=== PATIENT | male | born 1970 | race Caucasian/White ===

== ENCOUNTER 2017-10-26 21:59 | Emergency (ER) | payer MEDICARE, MEDICAID ==
[~2017-10-26] VITALS: Ht 175.3 cm; Wt 101.7 kg
[~2017-10-26 21:59] MED LIST: BENZ-16 PO; HCTZ25T PO; NO HOME MEDS
[2017-10-26] MEDS ORDERED: proparacaine 0.5% ophthalmic drops 15ml EACHEYE ONE (23:10)
[2017-10-26] MEDS ORDERED: TETanus/Pertussis (Acell)/Diphther VAC/PF (Tdap-Adult) 0.5ml syringe IMVAC ONE (23:55)
[2017-10-27] MEDS ORDERED: ciprofloxacin 0.3% 5ml ophthalmic solution RIGHTEYE ONE ×2 (00:20→00:30)
[2017-10-27] MEDS ORDERED: diazepam 5mg tablet PO ONE (00:20)
[2017-10-27] MEDS ORDERED: HYDROcodone/acetaminophen 10/325mg tab PO ONE (00:20)
[2017-10-27] MEDS ORDERED: HYDR-3965 PO (00:29)
[2017-10-27] MEDS ORDERED: DIAZ5TAB PO (00:29)
[2017-10-27] MEDS ORDERED: CIPR2.5D18 RIGHTEYE (00:50)
[2017-10-27] MEDS ORDERED: gentamicin 0.3% ophthalmic drops 5ML RIGHTEYE ONE (00:55)
[2017-10-27 01:11] VITALS: BP 148/94
== END 2017-10-27 01:15 | disposition home or self-care (01) ==
LOC: ER 22:00
DX: T15.01XA Foreign body in cornea, right eye, initial encounter (principal); I10 Essential (primary) hypertension; K21.9 Gastro-esophageal reflux disease without esophagitis; E11.9 Type 2 diabetes mellitus without complications; Z88.1 Allergy status to other antibiotic agents; Z79.899 Other long term (current) drug therapy; X58.XXXA Exposure to other specified factors, initial encounter; Y93.89 Activity, other specified; Y92.89 Other specified places as the place of occurrence of the external cause; Y99.8 Other external cause status
CPT/HCPCS: 65222; 90471; 90715; 99284

== ENCOUNTER 2017-12-05 01:41 | Emergency (ER) | payer MEDICARE, MEDICAID ==
[~2017-12-05] VITALS: Ht 175.3 cm; Wt 195.0 kg
[~2017-12-05 01:41] MED LIST changes: +DIAZ5TAB PO
[2017-12-05] MEDS ORDERED: proparacaine 0.5% ophthalmic drops 15ml LEFTEYE ONE (02:00)
[2017-12-05] MEDS ORDERED: benoxinate/fluorescein ophth drops 5ml bottle LEFTEYE ONE (02:00)
[2017-12-05] MEDS ORDERED: gentamicin 0.3% ophthalmic drops 5ML LEFTEYE SCH (02:20)
[2017-12-05 02:49] VITALS: BP 151/99
== END 2017-12-05 02:51 | disposition home or self-care (01) ==
LOC: ER 01:42
DX: H10.9 Unspecified conjunctivitis (principal); I10 Essential (primary) hypertension; K21.9 Gastro-esophageal reflux disease without esophagitis; E11.9 Type 2 diabetes mellitus without complications; Z88.1 Allergy status to other antibiotic agents
CPT/HCPCS: 99283

== ENCOUNTER 2017-12-13 17:06 | Emergency (ER) | payer MEDICARE, MEDICAID ==
[~2017-12-13] VITALS: Ht 175.3 cm; Wt 97.7 kg
[2017-12-13] MEDS: proparacaine 0.5% ophthalmic drops 15ml RIGHTEYE ONE (18:17)
[2017-12-13] MEDS: ciprofloxacin 0.3% 5ml ophthalmic solution RIGHTEYE SCH (19:13)
[2017-12-13 19:21] VITALS: BP 135/89
== END 2017-12-13 19:23 | disposition home or self-care (01) ==
LOC: ER 17:07
DX: T15.91XA Foreign body on external eye, part unspecified, right eye, initial encounter (principal); I10 Essential (primary) hypertension; E11.9 Type 2 diabetes mellitus without complications; K21.9 Gastro-esophageal reflux disease without esophagitis; Z88.1 Allergy status to other antibiotic agents; Z79.899 Other long term (current) drug therapy; Y92.89 Other specified places as the place of occurrence of the external cause
CPT/HCPCS: 65222; 99284

== ENCOUNTER 2018-03-22 23:45 | Emergency (ER) | payer MEDICARE, MEDICAID ==
[~2018-03-22] VITALS: Ht 175.3 cm; Wt 97.0 kg
[2018-03-23 00:01] VITALS: BP 126/97
[2018-03-23] MEDS ORDERED: IBUP-1984 PO (02:23)
[2018-03-23] MEDS ORDERED: HYDR-569 PO (02:23)
== END 2018-03-23 02:40 | disposition home or self-care (01) ==
LOC: ER 23:46
DX: S60.212A Contusion of left wrist, initial encounter (principal); I10 Essential (primary) hypertension; K21.9 Gastro-esophageal reflux disease without esophagitis; E11.9 Type 2 diabetes mellitus without complications; Z88.1 Allergy status to other antibiotic agents; Z79.899 Other long term (current) drug therapy; W22.8XXA Striking against or struck by other objects, initial encounter; Y93.89 Activity, other specified; Y92.89 Other specified places as the place of occurrence of the external cause; Y99.8 Other external cause status
CPT/HCPCS: 29125; 73110; 99284; A4565

== ENCOUNTER 2018-12-28 14:23 | Emergency (ER) | payer MEDICARE, MEDICAID ==
[~2018-12-28] VITALS: Ht 175.3 cm; Wt 95.5 kg
[~2018-12-28 14:23] MED LIST changes: +HYDR-4383 PO
[2018-12-28 14:34] VITALS: BP 136/97
[2018-12-28] MEDS ORDERED: ketorolac tromethamine 15mg/ml inj. IM ONE (15:05)
[2018-12-28] MEDS ORDERED: IBUP-1985 PO (15:35)
== END 2018-12-28 15:48 | disposition home or self-care (01) ==
LOC: ER 14:23
DX: M25.522 Pain in left elbow (principal); R20.0 Anesthesia of skin; I10 Essential (primary) hypertension; K21.9 Gastro-esophageal reflux disease without esophagitis; E11.9 Type 2 diabetes mellitus without complications; Z90.89 Acquired absence of other organs; Z88.1 Allergy status to other antibiotic agents; Z79.899 Other long term (current) drug therapy; X50.1XXA Overexertion from prolonged static or awkward postures, initial encounter; Y93.89 Activity, other specified; Y92.89 Other specified places as the place of occurrence of the external cause; Y99.9 Unspecified external cause status
CPT/HCPCS: 73080; 96372; 99283; J1885

== ENCOUNTER 2019-08-28 16:37 | Emergency (ER) | payer MEDICARE, MEDICAID ==
[~2019-08-28] VITALS: Ht 175.3 cm; Wt 97.7 kg
[~2019-08-28 16:37] MED LIST changes: +IBUP-1985 PO
[2019-08-28 16:48] VITALS: BP 118/91
[2019-08-28] MEDS ORDERED: IBUP-1984 PO (17:36)
[2019-08-28] MEDS ORDERED: CEPH250T PO (17:36)
== END 2019-08-28 17:45 | disposition home or self-care (01) ==
LOC: ER 16:37
DX: M79.644 Pain in right finger(s) (principal); L08.9 Local infection of the skin and subcutaneous tissue, unspecified; I10 Essential (primary) hypertension; K21.9 Gastro-esophageal reflux disease without esophagitis; E11.9 Type 2 diabetes mellitus without complications; Z90.89 Acquired absence of other organs; Z98.890 Other specified postprocedural states; Z88.1 Allergy status to other antibiotic agents; Z79.2 Long term (current) use of antibiotics; Z79.899 Other long term (current) drug therapy
CPT/HCPCS: 99283

== ENCOUNTER 2022-07-28 11:53 | Emergency (ER) | payer MEDICARE, MEDICAID ==
[~2022-07-28] VITALS: Ht 175.3 cm; Wt 98.0 kg
[2022-07-28 12:03] VITALS: BP 185/96
== END 2022-07-28 13:15 | disposition home or self-care (01) ==
LOC: ER 11:54
DX: M25.532 Pain in left wrist (principal); I10 Essential (primary) hypertension; K21.9 Gastro-esophageal reflux disease without esophagitis; E11.9 Type 2 diabetes mellitus without complications; Z88.1 Allergy status to other antibiotic agents; Z91.041 Radiographic dye allergy status; Z98.890 Other specified postprocedural states
CPT/HCPCS: 29125; 73110; 99283; L3908

== ENCOUNTER 2023-11-09 18:06 | Emergency (ER) | payer MEDICARE, MEDICAID ==
[~2023-11-09] VITALS: Ht 175.3 cm; Wt 95.8 kg
[2023-11-09 18:30] VITALS: BP 148/98; PULSE 100; RESP 18; TEMP 98.2; O2SAT 97
[2023-11-09] MEDS: TETanus/Pertussis (Acell)/Diphther VAC/PF (Tdap-Adult) 0.5ml syringe IMVAC ONE (19:14)
[2023-11-09] MEDS: bacitracin 15gm ointment TP ONE (19:16)
[2023-11-09] MEDS: LIDOCAINE 1%/EPI 1:100,000 inj. 10 ML multi-dose vial SQ ONE (19:16)
== END 2023-11-09 19:32 | disposition home or self-care (01) ==
LOC: ER 18:07
DX: S81.812A Laceration without foreign body, left lower leg, initial encounter (principal); I10 Essential (primary) hypertension; K21.9 Gastro-esophageal reflux disease without esophagitis; E11.9 Type 2 diabetes mellitus without complications; Z91.041 Radiographic dye allergy status; Z88.1 Allergy status to other antibiotic agents; Z79.899 Other long term (current) drug therapy; Z79.1 Long term (current) use of non-steroidal anti-inflammatories (NSAID); W45.8XXA Other foreign body or object entering through skin, initial encounter; Y93.89 Activity, other specified; Y92.89 Other specified places as the place of occurrence of the external cause; Y99.8 Other external cause status
CPT/HCPCS: 12002; 90471; 90715; 99283; A6258

== ENCOUNTER 2023-11-19 10:36 | Emergency (ER) | payer MEDICARE, MEDICAID ==
[~2023-11-19] VITALS: Ht 175.3 cm; Wt 95.1 kg
[2023-11-19 10:37] VITALS: BP 143/105; PULSE 79; RESP 16; TEMP 97.8; O2SAT 97
== END 2023-11-19 11:05 | disposition home or self-care (01) ==
LOC: ER 10:37
DX: S81.812D Laceration without foreign body, left lower leg, subsequent encounter (principal); Z48.00 Encounter for change or removal of nonsurgical wound dressing; X58.XXXD Exposure to other specified factors, subsequent encounter; I10 Essential (primary) hypertension; K21.9 Gastro-esophageal reflux disease without esophagitis; E11.9 Type 2 diabetes mellitus without complications; Z88.1 Allergy status to other antibiotic agents; Z79.899 Other long term (current) drug therapy
CPT/HCPCS: 99281

== ENCOUNTER 2024-12-17 22:20 | Emergency (ER) | payer MEDICARE, MEDICAID ==
[~2024-12-17] VITALS: Ht 175.3 cm; Wt 97.7 kg
[2024-12-17 22:28] VITALS: BP 169/96; PULSE 86; RESP 19; TEMP 98.1; O2SAT 94
== END 2024-12-18 02:10 | disposition left against medical advice (07) ==
LOC: ER 22:21
DX: R05.9 Cough, unspecified (principal); J00 Acute nasopharyngitis [common cold]; R09.81 Nasal congestion; Z88.8 Allergy status to other drugs, medicaments and biological substances; Z20.822 Contact with and (suspected) exposure to COVID-19; Z53.21 Procedure and treatment not carried out due to patient leaving prior to being seen by health care provider
CPT/HCPCS: 36415; 71045; 87502; 87503; 87811

== ENCOUNTER 2025-06-23 19:31 | Inpatient (IN) | payer MEDICARE, MEDICAID ==
[~2025-06-23] VITALS: Ht 175.3 cm; Wt 80.5 kg
[~2025-06-23 19:31] MED LIST changes: -IBUP-1985 PO; +IBUP600T52 PO
[2025-06-23 20:00] LABS: LEUKOCYTE ESTERASE ,URINE NEGATIVE (Neg); NITRITES, URINE NEGATIVE (Neg); OCCULT BLOOD,URINE NEGATIVE (Neg)
[2025-06-23 20:07] LABS: UA COLLECTION TYPE CLN CATCH MIDSTREAM
[2025-06-23 20:16] LABS: CREATININE 1.04 MG/DL (0.60-1.10); TOTAL CARBON DIOXIDE 25.3 MMOL/L (24-32); eCRCL 80 ML/MIN; eGFR 74 ML/MIN
[2025-06-23 20:19] LABS: MEAN PLATELET VOLUME 9.1 FL (7.4-10.4); RED CELL DISTRIBUTION WIDTH 15.2 % (11.5-14.5)
[2025-06-23] MEDS ORDERED: iohexol 300mg/ml 100ml inj. ONE (23:23)
[2025-06-24] VITALS (27 sets, daily range): BP systolic 102–166; BP diastolic 61–92; PULSE 66–91; RESP 12–26; TEMP 97.3–98.2; O2SAT 90–100
--- NOTE | 2025-06-24 00:07 | RADIOLOGY REPORT ---
CLINICAL HISTORY: LRQ pain with fever, nausea and vomiting TECHNIQUE: CT of the abdomen and pelvis was performed with intravenous contrast. 100 mL Omnipaque 300 injected This exam was performed according to our departmental dose optimization program. Up-to-date CT equipment and radiation dose reduction techniques are utilized as appropriate. CTDIVol: 33.71 mGy DLP: 1816.22 mGy-cm WID: COMPARISON: None FINDINGS: Lower Thorax: Normal-sized heart without pericardial effusion. There is a small hiatal hernia. Trace pericardial fluid. Mild bilateral bronchial wall thickening in the lung bases. There are a few tiny sub 5 mm nodules in the lung bases for example in the right middle lobe on series 2, image 10. Liver and Biliary system: There is nodular contour of the liver. There is mild hepatic steatosis. No discrete hepatic lesion. The major portal veins are patent. The gallbladder is normal caliber. There is no biliary ductal dilatation. Small portosystemic collateral vessels in the upper abdomen. Spleen: Mild splenomegaly. Adrenal Glands and Kidneys: Normal adrenal glands. No hydronephrosis or nephrolithiasis. Small left lower pole renal cyst. Pancreas and Retroperitoneum: Fatty infiltration and atrophy of the pancreas. There is no retroperitoneal lymphadenopathy. Aorta and Major Vessels: Aortoiliac vessels are patent and normal caliber containing mild calcified atherosclerotic plaque. Bowel, Mesentery and Peritoneal space: Normal caliber small and large bowel. There is a dilated hyperemic appendix with periappendiceal soft tissue stranding. Note is made of prior inessa fundoplication. There is no free intraperitoneal air or fluid collection. Pelvis: The prostate and seminal vesicles are grossly unremarkable. The urinary bladder is mildly distended. There is no pelvic lymphadenopathy. Abdominal wall and Osseous Structures: Tiny sclerotic foci in the proximal femurs and pelvis, likely bone islands. Multilevel lower thoracic and lumbar spondylosis. There is grade 1 anterolisthesis at L5-S1 with bilateral L5 spondylolysis. No destructive osseous lesion. IMPRESSION: 1. Acute appendicitis. No free air or abscess. 2. Nodular contour of the liver should be fibrosis or cirrhosis. Correlate with liver function test. 3. Small portosystemic collateral vessels and splenomegaly which may be stigmata of portal hypertension . 4. Prior Inessa fundoplication and small hiatal hernia.
--- NOTE | 2025-06-24 01:12 | Physician Documentation ---
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 Patient reports that he feels like he has had a slight fever he has been nauseated and had 1 episode of vomiting that time. Reports significant abdominal pain. Patient denies anything that makes it better or makes it worse reports that the pain is persistent. Medication Reconciliation Allergies: Coded Allergies: Erythromycin Lactobionate (Verified Allergy, Unknown, 06/23/25) amoxicillin (Verified Allergy, Unknown, 06/23/25) Scheduled Hydrochlorothiazide* (Hctz*), 25 MG PO DAILY, (Reported) Ibuprofen (Ibuprofen), 1 TAB PO Q8H Scheduled PRN Benzonatate* (Tessalon Perles*), 100 MG PO Q8H PRN for cough Diazepam (Valium), 1 TABLET PO TID PRN for severe pain Hydrocodone/Acetaminophen ([place] 5-325 Tablet), 1-2 TAB PO Q4HPRN PRN for pain Miscellaneous Medications Home Med List (No Home Medications), (Reported) Past Medical History Past Medical History: Hypertension, GERD, Diabetes Past Surgical History: tonsillectomy, other Alcohol Use: None Drug Use: none Lives with: Family Lives In: Home Occupation: disabled Review of Systems ROS As stated above in the HPI, otherwise all systems are reviewed and negative. Physical Exam Vital Signs: Temperature: 97.6, Source: Temporal, Heart Rate: 89, Respiratory Rate: 15, BP: 124/97, Pulse Oximetry: 99, Weight: 80.500 Physical Exam VITALS: Reviewed and as above. GENERAL: Alert, no apparent distress. GI: Soft, markedly tender with palpation, bowels sounds present, guarding and rebound tenderness. BACK: No CVA tenderness, or swelling MUSCULOSKELETAL No deformities, no edema SKIN: Warm and dry, no rash NEURO: Oriented x4, No motor or sensory deficit PSYCH: Normal mood and affect, no agitation Progress Results/Orders Results/Orders Orders - JOAQUIN,CHRISTIAN A CERTIFIED ANESTHESIOLOGIST ASSISTANT Ct Abdomen Pelvis (06/23/25 23:16) Page Hospitalist (06/24/25 00:33) Completed Orders - JOAQUINCHRISTIAN A CERTIFIED ANESTHESIOLOGIST ASSISTANT Ct Abdomen Pelvis (06/23/25 23:16) Iohexol 300mg/Ml 100ml Inj. (Omnipaque-3 (06/23/25 23:23) Vital Signs 06/23/25 06/23/25 19:37 22:45 Temp 97.6 Pulse 93 89 Resp 15 15 B/P (MAP) 146/86 124/97 (106) Pulse Ox 98 99 Laboratory Tests Test 06/23/25 19:46 06/23/25 19:51 Urine Specimen Description Cln catch midstream Urine Color Yellow Urine Clarity Clear Urine pH 6.0 Urine Specific [place] >=1.030 Urine Protein Negative Urine Glucose (UA) 100 H Urine Ketones Trace H Urine Occult Blood Negative Urine Nitrite Negative Urine Bilirubin Negative Urine Urobilinogen 0.2 Urine Leukocyte Esterase Negative Urine Culture Indicated Not ind Volume Urine Centrifuged 10 ml Urine Comment White Blood Count 13.8 H Red Blood Count 5.62 Hemoglobin 15.2 Hematocrit 45.8 Mean Corpuscular Volume 81.4 Mean Corpuscular Hemoglobin 27.0 Mean Corpuscular Hemoglobin Concent 33.1 Red Cell Distribution Width 15.2 H Platelet Count 228 Mean Platelet Volume 9.1 Neutrophils (%) (Auto) 82.4 H Lymphocytes (%) (Auto) 8.7 L Monocytes (%) (Auto) 4.6 Eosinophils (%) (Auto) 3.7 Basophils (%) (Auto) 0.6 Neutrophils # (Auto) 11.3 H Lymphocytes # (Auto) 1.2 Monocytes # (Auto) 0.6 Eosinophils # (Auto) 0.5 Basophils # (Auto) 0.1 CBC Comment Sodium Level 139 Potassium Level 4.0 Chloride Level 104 Carbon Dioxide Level 25.3 Anion Gap 10 Blood Urea Nitrogen 12 Creatinine 1.04 Estimated GFR/1.73 m2 74 BUN/Creatinine Ratio 11.5 Glucose Level 154 H Calcium Level 9.2 Total Bilirubin 0.9 Aspartate Amino Transf (AST/SGOT) 26 Alanine Aminotransferase (ALT/SGPT) 25 Alkaline Phosphatase 98 Total Protein 7.6 Albumin 4.0 Globulin 3.6 Albumin/Globulin Ratio 1.1 Lipase 18 Chemistry Comments Medical Decision Making Findings This is a 54-year-old gentleman with RLQ pain, most concerning for appendicitis. Abdominal exam concerning for peritoneal signs acute abdomen at this time. High suspicion for appendicitis. Patient with appendicitis this confirmed on CT scan, the hospitalist was consulted and patient admitted. Given work up, low suspicion for acute hepatobiliary disease (including acute cholecystitis or cholangitis), acute infectious processes (pneumonia, hepatitis, pyelonephritis), vascular catastrophe, bowel obstruction, or viscus perforation. Presentation not consistent with other acute, emergent causes of abdominal pain at this time. IV established fluids started pain management provided Zofran given. Handoff for this patient has been provided to my attending Dr. Johansen. Differential Dx:Considerations: Include: AAA, Angina/PA, Aortic dissection, Appendicitis, Bowel obstruction, Cholangitis, Cholelithasis, Constipation, Diverticular disease, Esophageal rupture, Esophagitis, Gastritis/PUD, Gastroenteritis, GI hemorrhage, Hernia, Hepatitis, Inflammatory BD, Ischemic bowel, Pancreatitis, Porphyria, Testicular torsion, Trauma, intraabdominal, Urinary obstruction, Urinary tract infection, Urolithiasis, Other Departure Disposition: ADMITTED INPATIENT Impression: Primary Impression: Abdominal pain Additional Impression: Acute appendicitis Condition: Stable Discharge Instructions: Abdominal Pain (Nonspecific) Additional Instructions: This is a 54-year-old gentleman with RLQ pain, most concerning for appendicitis. Abdominal exam concerning for peritoneal signs acute abdomen at this time. High suspicion for appendicitis. Patient with appendicitis this confirmed on CT scan, the hospitalist was consulted and patient admitted. Given work up, low suspicion for acute hepatobiliary disease (including acute cholecystitis or cholangitis), acute infectious processes (pneumonia, hepatitis, pyelonephritis), vascular catastrophe, bowel obstruction, or viscus perforation. Presentation not consistent with other acute, emergent causes of abdominal pain at this time. IV established fluids started pain management provided Zofran given. Handoff for this patient has been provided to my attending Dr. Johansen. Referrals: NO PRIMARY CARE PROVIDER (PCP) Signature Scribe Signature: A Attestation: Scribed for Christian Nuñez by AUGUSTIN Jama . 06/24/25 01:13 CHRISTIAN NUÑEZ Jun 24, 2025 01:12
[2025-06-24] MEDS ORDERED: magnesium sulf-water 4G/100mL 100 ML IV PRN (01:35)
[2025-06-24] MEDS ORDERED: potassium Cl 40MEQ/1/2NS 520ml 520 ML IV PRN (01:35)
[2025-06-24] MEDS ORDERED: magnesium sulf-water 2g/50mL 50 ML IV PRN (01:35)
[2025-06-24] MEDS ORDERED: magnesium Cl slow-release 64mg tablet PO PRN (01:35)
[2025-06-24] MEDS ORDERED: magnesium hydroxide 30ml (MOM) UD suspension PO PRN (01:35)
[2025-06-24] MEDS ORDERED: mag hydrox/Alum hydrox/simeth 30ml oral suspension PO PRN (01:35)
[2025-06-24] MEDS ORDERED: potassium Cl 20 mEq SR tablet PO PRN ×2 (01:35)
[2025-06-24] MEDS ORDERED: ondansetron/PF 4mg/2ml inj IV PRN ×4 (01:35→14:05)
--- NOTE | 2025-06-24 01:54 | HISTORY AND PHYSICAL-Residence ---
History & Physical Providers to CC Resident Creating Document: STEVEAPRYLKURT ORTIZ, RES CC: ELISA PHILLIPS MD ~ History of Present Illness Primary Medical Doctor: melvin riddle Reason for Admit\Complaint: Abdominal pain History of Present Illness A 54-year-old male with PMH of hiatal hernia s/p repair, mellitus esophagus, DM type 2 (insulin dependent) presented to the ED in view of acute onset of right lower quadrant abdominal pain that started this afternoon. Patient states that he started to have right lower quadrant abdominal pain sharp in character with a severity of 7/10 radiating in the belly button. Patient feels better when leaning forward and moving around worsened with the pain. Patient had associated nausea. Patient denies fever with chills, vomitings. Patient underwent colonoscopy one year ago with Dr. Méndez which was normal. Patient underwent multiple EGDs in view of paroxysmal vagus and hiatal hernia. Allergies: Coded Allergies: Erythromycin Lactobionate (Verified Allergy, Unknown, 06/23/25) amoxicillin (Verified Allergy, Unknown, 06/23/25) Home Medications Home Medications Active Ibuprofen 600 Mg Tablet 1 Tab PO Q8H 10 Days [place] 5-325 Tablet (Hydrocodone/Acetaminophen) 1 Each Tablet 1-2 Tab PO Q4HPRN PRN Valium (Diazepam) 5 Mg Tablet 1 Tablet PO TID PRN Tessalon Perles* (Benzonatate) 100 Mg Capsule 100 Mg PO Q8H PRN Reported Hctz* (Hydrochlorothiazide) 25 Mg Tablet 25 Mg PO DAILY No Home Medications (Home Med List) Each Past Medical History Past Medical History Car's esophagus Hiatal hernia Diabetes mellitus type 2, insulin dependent GERD Sleep apnea, noncompliant with CPAP mask Past Surgical History Surgical History Comment Hiatal hernia repair Tonsillectomy Past Social History Social History Comment Lives at home with family Quit alcohol in 2016 Exposed to secondhand smoke Denies active smoking, marijuana, illicit drugs. Primary care Dr. Stoddard GI: Dr. Méndez Smoking: Non-Smoker Alcohol Use: None Drug Use: None Lives with: Family Lives In: Home Occupation: disabled ROS ROS Constitutional: No fever, chills, dizziness, weight gain or loss Eyes: No pain, erythema, discharge, blurring of vision ENT: No sore throat, epistaxis, tinnitus Cardiovascular: No Shortness of breath. Chest pressure, chest discomfort, palpitations, syncope, lower extremity edema, paroxysmal nocturnal dyspnea Respiratory: No Shortness of breath and cough present, No hemoptysis Gastrointestinal: Decreased appetite, abdominal pain, nausea. No vomiting, diarrhea, constipation, hematemesis, bloating, melena or fresh blood Musculoskeletal: No pedal edema. Integumentary: No change in skin, hair, nails. No swelling, bruising, abrasions Neurologic: No headache, neck pain, numbness or tingling of the extremities, weakness Psychiatric: No delusions, depression, loss of interest in normal activity or change in sleep pattern, hallucinations, suicidal ideations Endocrine: No fatigue, weakness, polydipsia, polyuria, change in appetite, heat or cold intolerance, sweating, dry skin Exam Vitals: Vital Signs Date Time Temp Pulse Resp B/P (MAP) Pulse Ox O2 Delivery O2 Flow Rate FiO2 06/23/25 22:45 89 15 124/97 (106) 99 06/23/25 19:37 97.6 General: General: Moderately built middle-aged man, Alert, awake, oriented, in acute distress HEENT: PERRLA, no icterus, pallor, lymphadenopathy, carotid bruit Respiratory system: Bilateral vesicular breath sounds heard, no adventitious breath sounds CVS: S1-S2 heard, no murmurs/rubs/gallop GI: Tenderness in the right lower quadrant and umbilicus, Soft, no organomegaly, no guarding/rigidity, against bowel sounds present Neuro: No focal neurological deficits present Extremities: No edema cyanosis clubbing/deformities Skin: Warm and dry, multiple excoriation altamirano with scabs and papules present on the lower extremity. Diagnostic Data Last Recorded Lab Results: 06/23/25195006/24/25 0202 Advance Care Planning Advanced Care plannin - 30 Minutes (I spent 20 minutes discussing various resuscitative measures and the patient decided to be full code) Additional Plan Assessment: A 54-year-old male with PMH of Car's esophagus, hiatal hernia presented to the ED in view of acute onset of right lower quadrant abdominal pain. Patient is admitted for the evaluation management of acute appendicitis, probably uncomplicated. Plan: Acute appendicitis, probably uncomplicated Mild leukocytosis with left shift CT abdomen: Acute appendicitis. Prednisolone fundoplication and small hiatal hernia. Probable portal hypertension IV fluids at 100 cc/hour Pain meds p.r.n., IV Zosyn q.6h p.r.n. for nausea and vomitings Consult with Dr. Alcantar in a.. NPO Diabetes mellitus type 2 Insulin-dependent Follow up with A1c Lantus 15 units, low-dose sliding scale insulin Continue to monitor blood sugars Obstructive sleep apnea Noncompliant with CPAP mask Outpatient follow up CPAP daily at night Hiatal hernia s/p Alton fundoplication History of GERD Outpatient follow up Code status: Full code Diet: NPO DVT prophylaxis: SCD Disposition: Admit to surgical, surgery consult in [facility] Jessica Hays MD Internal Medicine, PGY 2 Date of Service: Jun 24, 2025 Billing Provider: ELISA PHILLIPS MD Addendum acute appendicitis - zosyn IV - surgical consult stat - NPO IM 3 KURT HAYS, RES Jun 24, 2025 01:54 ELISA PHILLIPS MD Jun 24, 2025 04:13
[2025-06-24] MEDS ORDERED: dextrose 50%-water 50ml dispensing syringe IV PRN ×2 (02:00)
[2025-06-24] MEDS ORDERED: DEXTROSE 15 GM of carb/4 tabs (each vial/BOTTLE has 4 tablets) PO PRN ×2 (02:00)
[2025-06-24] MEDS ORDERED: glucagon, human recombinant 1mg kit SUBCUT PRN (02:00)
[2025-06-24] MEDS: HYDROcodone/acetaminophen 5mg/325mg tablet PO PRN (02:15)
[2025-06-24] MEDS ORDERED: piperacillin/tazo 3.375gm/50ml 50 ML IV SCH (02:30)
[2025-06-24] MEDS: PERFLUTREN PROTEIN-A MICROSPHR (Optison) 0.22 MG/ML 3ML VIAL IV ONE (04:28)
[2025-06-24] MEDS: normal saline 1000ml 1,000 ML IV SCH (04:44)
[2025-06-24] MEDS: metroNIDAZOLE-Flagyl 500mg/NS 100 ML IV SCH (04:44)
[2025-06-24] MEDS: INSULIN LISPRO 100 UNIT/ML INSULN.PEN MULTI-DOSE SQ SCH (07:00)
[2025-06-24] MEDS: docusate sod 100mg capsule PO SCH (07:46)
[2025-06-24] MEDS: CIPROFLOXACIN 400MG/200ML premix IV SCH (07:51)
[2025-06-24] MEDS: K and/or MAG REPLACEMENT MC SCH (08:00)
--- NOTE | 2025-06-24 09:19 | RADIOLOGY REPORT ---
EXAM: DI CHEST,SINGLE VIEW Indication: pain Technique: Single frontal view of the chest was obtained Comparison: DI CHEST,SINGLE VIEW on DOS: 12/17/24 FINDINGS: Lines and Tubes: None Lungs: No focal consolidation. Pleura: No effusion. No pneumothorax. Cardiomediastinal contours: Unremarkable Bones: No acute osseous abnormality. IMPRESSION: No acute cardiopulmonary disease.
--- NOTE | 2025-06-24 10:15 | ELECTROCARDIOGRAPH REPORT ---
[facility] Test Date: 2025-06-24 Test Time: 10:12:25 Pat Name: ISHAN BLUNT Department: 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 YOLANDA Pratt Measurements Intervals [place] Rate: 63 P: 24 UT: 152 QRS: 13 QRSD: 160 T: -1 QT: 431 QTc: 442 Interpretive Statements Sinus rhythm Right bundle branch block Electronically Signed On 06-24-2025 17:11:[address] YOLANDA Pratt Please click the below link to view image of tracing.
[2025-06-24] MEDS ORDERED: labetalol 20mg/4ml (5mg/ml) syringe IV PRN ×2 (10:50→14:05)
[2025-06-24] MEDS ORDERED: hydrALAZINE 20mg/ml inj. IV PRN (10:50)
[2025-06-24] MEDS ORDERED: morphine 4 MG/ML inj SYRINge IV PRN ×2 (10:50→14:05)
[2025-06-24] MEDS: ringers solution, lacted 1,000 ML IV SCH ×2 (10:50→14:05)
[2025-06-24] MEDS ORDERED: fentaNYL/PF 50MCG/1 ML 2ML syringe IV PRN ×4 (10:50→14:05)
--- NOTE | 2025-06-24 11:04 | PROGRESS NOTE ---
Progress Note ID Providers to CC ~ Progress Note Progress Note: pt seen and examined-findings consistent with appendicitis-pt needs glo padron- possible open-discussed procedure including risks/benefits/alternatives QUEENIE DELUNA MD Jun 24, 2025 11:04
[2025-06-24] MEDS ORDERED: HYDROmorphone/PF 0.2 MG/ML SYRINGE IV PRN ×2 (14:05)
[2025-06-24] MEDS ORDERED: enalaprilat 1.25mg/ml 2ml vial IV PRN (14:05)
[2025-06-24] MEDS ORDERED: fentaNYL /PF 50mcg/ml 5ml ampule ONE (14:16)
[2025-06-24] MEDS ORDERED: midazolam 1 mg/ML 2ml injection ONE (14:16)
[2025-06-24] MEDS ORDERED: BUPIVAcaine 2.5mg/ml inj 50ml vial (contains preservative) ONE (14:17)
[2025-06-24] MEDS ORDERED: LIDOcaine 2% (20mg/ml) 5ml vial ONE (15:36)
[2025-06-24] MEDS ORDERED: propofol inj 20 ML IV ONE (15:36)
[2025-06-24] MEDS ORDERED: rocuronium 10mg/ml inj IV ONE (15:37)
[2025-06-24] MEDS ORDERED: ondansetron/PF 4mg/2ml inj ONE (15:37)
[2025-06-24] MEDS ORDERED: dexamethasone sod phosphate 4mg/ml inj. ONE (15:37)
[2025-06-24] MEDS ORDERED: acetaminophen 1,000mg/100ml IV 100 ML IV ONE (15:37)
[2025-06-24] MEDS ORDERED: vancomycin 1,000mg inj ONE (15:40)
[2025-06-24] MEDS ORDERED: glycopyrrolate 0.2mg/ml inj ONE (16:31)
--- NOTE | 2025-06-24 16:32 | OPERATIVE REPORT ---
Operative Report Providers to CC ~ Date of Procedure: Jun 24, 2025 Pre-Operative Diagnosis: APPENDICITIS Post-Operative Diagnosis SAME as PRE-Op Procedure Performed glo padron Surgeon: lakeisha newby Anesthesiologist: Deepak Contreras Type of Anesthesia: General Findings: appendicitis Estimated Blood Loss: min Specimen Removed: QUEENIE Hitchcock MD Jun 24, 2025 16:32
[2025-06-24] MEDS ORDERED: HYDROcodone/acetaminophen 10/325mg tab PO PRN (16:35)
--- NOTE | 2025-06-24 17:25 | PROGRESS NOTE- Residence ---
Progress Note - Resident Providers to CC Resident Creating Document: MAGDIEL LIZAMA RES ~ Central Line/PICC still needed: N\A Antibiotic Timeout Antibiotic Ordered?: Yes Subjective Patient examined bedside after surgery-robot assisted laparoscopic appendectomy. Drowsy most likely from the anesthesia. Not complaining of pain right now. Incision site clean and healthy. Objective Vital Signs Date Time Temp Pulse Resp B/P (MAP) Pulse Ox O2 Delivery O2 Flow Rate FiO2 06/24/25 17:05 66 12 140/74 (96) 100 Mask 6.0 06/24/25 16:45 97.9 06/24/25 09:15 21 Result Diagram: 06/23/25195006/24/25 0202 General: Moderately built middle-aged man, Alert, awake, oriented, in acute distress HEENT: PERRLA, no icterus, pallor, lymphadenopathy, carotid bruit Respiratory system: Bilateral vesicular breath sounds heard, no adventitious breath sounds CVS: S1-S2 heard, no murmurs/rubs/gallop GI: Incision sites covered with bandage, clean. Abdomen tender in all quadrants. No bloating/rigidity. Neuro: No focal neurological deficits present Extremities: No edema cyanosis clubbing/deformities Skin: Warm and dry, multiple excoriation altamirano with scabs and papules present on the lower extremity. Coagulation Studies Laboratory Tests Test 06/24/25 09:22 Activated Partial Thromboplast Time 32 SECONDS (22-32) Counseling Services Smoking & Tobacco Cessation: N/A Advance Care Planning Advanced Care plannin - 30 Minutes (Full code) Assessment Assessment A 54-year-old male with PMH of Car's esophagus, hiatal hernia presented to the ED in view of acute onset of right lower quadrant abdominal pain diagnosed with appendicitis and underwent robot assisted laparoscopic appendectomy. Plan Plan Acute appendicitis, probably uncomplicated Modified Chu score- 8 Right iliac fossa pain, anorexia, nausea, tenderness in right iliac fossa, leukocytosis with left shift CT abdomen: IMPRESSION: 1. Acute appendicitis. No free air or abscess. 2. Nodular contour of the liver should be fibrosis or cirrhosis. Correlate with liver function test. 3. Small portosystemic collateral vessels and splenomegaly which may be stigmata of portal hypertension . 4. Prior Alton fundoplication and small hiatal hernia. Plan: IV fluids at 100 cc/hour Continue antibiotics ciprofloxacin 400 mg q.12h IV, metronidazole 500 mg q.12h IV Pain controlled with morphine/Dilaudid/[place] p.r.n. Zofran 4 mg IV p.r.n. for nausea/vomiting Status post robot assisted laparoscopic appendectomy by Dr. Alcantar Start liquid diet and advance as tolerated Diabetes mellitus type 2 Insulin-dependent Hemoglobin A1c 8.8 Lantus 15 units, low-dose sliding scale insulin Continue to monitor blood sugars Obstructive sleep apnea Noncompliant with CPAP mask Outpatient follow up CPAP daily at night Hiatal hernia s/p Alton fundoplication History of GERD Outpatient follow up Code status: Full code DVT prophylaxis: SCDs Analgesia/sedation: Morphine/[place]/Dilaudid p.r.n. Line/tube: PIV GI prophylaxis: None Nutrition: 75 g carb controlled PT: Ordered. Prognosis: Guarded Disposition: Monitor in surgery Magdiel Lizama MD PGY1, Internal Medicine [facility] Date of Service: Jun 24, 2025 Billing Provider: ANITA LI MD,MAGDIEL, RES Jun 24, 2025 17:25
--- NOTE | 2025-06-24 18:35 | CARDIOLOGY REPORT ---
APPROVED REPORT EXAM: Comprehensive 2D, Doppler, and color-flow Echocardiogram. Patient Location: 347 B Blood Pressure: 166/88 mmHg Heart Rate: 66 bpm Rhythm: SINUS Indications CONGESTIVE HEART FAILURE PRE-OP [facility] Industrial Relations Commissioner: none Previous echo: none 2D Dimensions RVDd 4.3 cm LA Diam 4.8 cm IVSd 1.0 (0.7-1.1cm) LVDd 4.8 cm PWd 0.9 (0.7-1.1cm) IVSs 1.5 (0.8-1.2cm) LVDs 3.1 (2.5-4.0cm) PWs 1.3 (0.8-1.2cm) LVOT Diameter 2.32 (1.8-2.4cm) LVEF(%) 65.5 (>50%) Ao Asc Diam. 3.84 cm IVC 10.03 mm FS (%) 36.0 % SV 69.9 ml CO 4.7 L/min M-Mode Dimensions Left Atrium(MM) 3.71 (2.5-4.0cm) Aortic Root 3.42 (2.2-3.7cm) Aortic Cusp Exc 2.55 (1.5-2.0cm) MV EPSS 0.5 (<0.5cm) Biplane 2D LA Volumes LA ESV Index 16.91 mL/m2 Aortic Valve AoV Peak Jaylen. 149.0 cm/s AoV VTI 27.6 cm AO Peak GR. 8.9 mmHg AO Mean GR. 4 mmHg LVOT VTI 22.28 cm LVOT Peak Jaylen. 107.4 cm/s RADHA(VTI)/BSA 3.40 cm2/m2 RADHA (VTI) 3.40 cm2 Mitral Valve MV E Velocity 82.9 cm/s MV Peak Gr. 6 mmHg MV DECEL TIME 236 ms MV A Velocity 106.1 cm/s MV PHT 60 ms E/A Ratio 0.8 MVA (PHT) 3.67 cm2 MV VMax 119.8 cm/s TDI Medial E' P. V 12.64 cm/s E/Medial E' 6.6 Pulmonary Vein S1 Velocity 47.4 cm/s D2 Velocity 61.9 cm/s PVa Velocity 33.4 cm/s PVa Duration 88 msec LEFT VENTRICLE Normal LV size and wall thickness. Overall systolic function is normal. LVEF is 60-65%. RIGHT VENTRICLE RV is moderately dilated with normal systolic function. ATRIA LA size is normal. Mobile interatrial septum - no flow detected. AORTIC VALVE Trileaflet AV appears mildly sclerotic without stenosis or insufficiency. MITRAL VALVE Mild MV annular calcification without stenosis. Trace regurgitation. TRICUSPID VALVE TV appears structurally normal with trace regurgitation. PULMONIC VALVE Normal PV without stenosis or insufficiency. GREAT VESSELS Aortic root is normal in size. Ascending aorta is dilated. The IVC is normal in size and collapses greater than 50% with inspiration. PERICARDIUM Normal pericardium. No effusion. Other Information Study Quality: Adequate Conclusion Normal LV size and wall thickness. Overall systolic function is normal. LVEF is 60-65%. RV is moderately dilated with normal systolic function. LA size is normal. Mobile interatrial septum - no flow detected. Trileaflet AV appears mildly sclerotic without stenosis or insufficiency. Mild MV annular calcification without stenosis. Trace regurgitation. TV appears structurally normal with trace regurgitation. Ascending aorta is dilated. Normal pericardium. No effusion.
[2025-06-24] MEDS: HYDROmorphone inj. 0.5 MG/0.5 ML DISP.SYRIN IV PRN (19:17)
[2025-06-24] MEDS: insulin glargine (Lantus) pen - multi-dose SQ SCH (21:35)
--- NOTE | 2025-06-25 00:51 | OPERATIVE REPORT ---
DATE OF SURGERY: 06/24/2025 DICTATING PHYSICIAN: Joseph Alcantar MD PREOPERATIVE DIAGNOSIS: Appendicitis. POSTOPERATIVE DIAGNOSIS: Appendicitis. PROCEDURE PERFORMED: Robotic appendectomy. SURGEON: Joseph Alcantar MD REGISTERED DIETETIC TECHNICIAN: None. ANESTHESIA: General/Dr. Contreras. DRAINS: None. INDICATIONS FOR OPERATION: A 54-year-old male with abdominal pain, found to have appendicitis, taken to the surgery for robotic appendectomy. INTRAOPERATIVE FINDINGS: Acute appendicitis. DESCRIPTION OF PROCEDURE: The patient was placed supine on the operating table. After induction of general anesthesia and placement of endotracheal tube, the abdomen was prepped and draped. A subumbilical incision was then made and a 12 mm port placed using open technique and pneumoperitoneum was begun by insufflation of CO2. Additional ports were then placed in the left lower quadrant and one in the right upper abdomen. Robot was then brought to the field. Camera port docked. Camera placed, camera targeted. Additional ports were then docked and instruments placed. Abdomen was then explored. The patient was found to have acute appendicitis. Appendix had been mobilized. Appendiceal-cecal junction identified, isolated, appendicitis mesentery. When hemostasis was found to be adequate, robotic instruments were removed from the field. The appendix was then placed in the Endobag using a laparoscope. Abdomen was copiously irrigated with large of antibiotic-containing solution. Ports were then removed under laparoscopic vision with no evidence of active bleeding. Final ports and camera were then withdrawn. Pneumoperitoneum was evacuated, wounds were closed in layers. Skin was closed with clips. Dressings applied. The patient was transferred to recovery in stable condition after reversing from general anesthesia. Joseph Alcantar MD TID: [id number] RECEIPT: [id number] KB/KIR
[2025-06-25 02:00] VITALS: BP 116/71; PULSE 80; RESP 16; TEMP 97.6; O2SAT 98
[2025-06-25 04:20] VITALS: O2SAT 97
[2025-06-25 05:14] LABS: MEAN PLATELET VOLUME 9.4 FL (7.4-10.4); RED CELL DISTRIBUTION WIDTH 15.2 % (11.5-14.5)
[2025-06-25 05:36] LABS: CHOL/HDL RATIO 2.8 (0.00-4.99); CREATININE 1.03 MG/DL (0.60-1.10); LDL CHOLESTEROL 76 MG/DL (50-100); TOTAL CARBON DIOXIDE 22.3 MMOL/L (24-32); eCRCL 81 ML/MIN; eGFR 75 ML/MIN
[2025-06-25 06:44] VITALS: BP 104/62; PULSE 71; RESP 15; TEMP 97.7; O2SAT 96
[2025-06-25 07:13] VITALS: RESP 15; O2SAT 96
--- NOTE | 2025-06-25 09:21 | CONSULTATION ---
DATE OF CONSULTATION: 06/24/2025 DICTATING PHYSICIAN: Joseph Alcantar MD REASON FOR CONSULTATION: Right lower quadrant abdominal pain. HISTORY OF PRESENT ILLNESS: The patient is a 54-year-old male with history of hiatal hernia repair, diabetes, Car's, with complaints of right lower quadrant pain. CAT scan revealed evidence of acute appendicitis. right lower quadrant pain over the course of the past 24 hours. No significant vomiting. PAST MEDICAL HISTORY: Car's, hiatal hernia, diabetes, GERD, and sleep apnea. PAST SURGICAL HISTORY: Hiatal hernia repair, tonsillectomy. HOME MEDICATIONS: Include Motrin, [place], Valium, eye drops, hydrochlorothiazide. ALLERGIES: ERYTHROMYCIN, AMOXICILLIN. SOCIAL HISTORY: No history of alcohol use. REVIEW OF SYSTEMS: . PHYSICAL EXAMINATION: GENERAL: Well nourished male, in no distress. VITAL SIGNS: Unremarkable. HEART: Regular rate and rhythm. LUNGS: Clear to auscultation. ABDOMEN: Right lower quadrant tenderness. EXTREMITIES: Unremarkable. NEUROLOGIC: Nonfocal. LABORATORY DATA: WBC 13, hematocrit of 45, platelet count 228. Chemistries unremarkable. IMAGING STUDIES: CAT scan reveals evidence of acute appendicitis. IMPRESSION: 1. Acute appendicitis. 2. History of hiatal hernia. 3. History of diabetes. 4. History of Car's. RECOMMENDATIONS: 1. Admit. 2. IV antibiotics. 3. Robotic appendectomy, possible open. Joseph Alcantar MD TID: [id number] RECEIPT: [id number] CRISTOBAL/KIR
[2025-06-25 10:24] VITALS: BP 118/71; PULSE 78; RESP 16; TEMP 97; O2SAT 95
[2025-06-25] MEDS ORDERED: HYDR-3965 PO (11:36)
--- NOTE | 2025-06-25 15:06 | PROGRESS NOTE ---
Progress Note ID Providers to CC ~ Progress Note Progress Note: doing well/ok to QUEENIE Correa MD Jun 25, 2025 15:06
[2025-06-25] MEDS ORDERED: BD (16:00)
[2025-06-25] MEDS ORDERED: PIOG45TA65 PO (16:00)
[2025-06-25] MEDS ORDERED: LANTUS SQ (16:00)
--- NOTE | 2025-06-25 16:03 | DISCHARGE SUMMARY-Residence ---
Discharge Summary Providers to CC Resident Creating Document: MAGDIEL LIZAMA, RES ~ Discharge Summary Admission Diagnosis: APPENDICITIS Hospital Course DATE OF ADMISSION: 06/24/2025 DATE OF DISCHARGE: 06/25/2025 Discharge Diagnosis\Comment: Appendicitis status post robot assisted lap appendicectomy on 06/25/2025 Past medical history of hiatal hernia status post surgery, Type 2 diabetes mellitus insulin dependent Operations\Procedures: Robot assisted laparoscopic appendectomy on 06/25/[address] Alcantar Consultants: Dr. Alcantar, surgeon Complications: None Condition on DC: Stable New Medications: Hydrocodone Bit/Acetaminophen 5/325 MG ([place] 5/325 MG) 5 Mg/325 Mg Tablet 1 TAB PO Q6H PRN for pain, #14 TAB Continued Medications: [Bd] () [Bd] () Insulin Glargine,Hum.rec.anlog* (Lantus*) 100 Unit/1 Ml Vial 40 UNITS SQ BID Pioglitazone Hcl (Pioglitazone Hcl) 45 Mg Tablet 1 TAB PO DAILY Discharge Summary: History of present illness: A 54-year-old male with PMH of hiatal hernia s/p repair, DM type 2 (insulin dependent) presented to the ED in view of acute onset of right lower quadrant abdominal pain , sharp in character with a severity of 7/10 radiating in the belly button. Relieved when leaning forward, associated with nausea. Patient denies fever with chills, vomitings. He underwent colonoscopy one year ago with Dr. Méndez which was normal. He also underwent multiple EGDs in view of paroxysmal vagus and hiatal hernia. Hospital course: From the clinical presentation and imaging he was diagnosed with acute appendicitis. He was started on antibiotic ciprofloxacin 400 mg IV b.i.d. and metronidazole 500 mg IV b.i.d. he underwent robot assisted laparoscopic appendectomy on 06/25/[address] Alcantar without any complication. He wishes to procedure well. No postoperative complications. He is tolerating clear liquid diet. He is hemodynamically stable and symptomatically better and hence being discharged with medication for pain management. Vital Signs Date Time Temp Pulse Resp B/P (MAP) Pulse Ox O2 Delivery O2 Flow Rate FiO2 06/25/25 10:24 97.0 78 16 118/71 (87) 95 Room Air 06/25/25 07:13 3.0 06/25/25 04:20 32 Laboratory Tests Test 06/23/25 19:46 06/23/25 19:51 06/24/25 02:02 06/24/25 07:01 Urine Specimen Description Cln catch midstream Urine Color Yellow Urine Clarity Clear Urine pH 6.0 Urine Specific [place] >=1.030 Urine Protein Negative mg/dl Urine Glucose (UA) 100 mg/dl Urine Ketones Trace mg/dl Urine Occult Blood Negative Urine Nitrite Negative Urine Bilirubin Negative Urine Urobilinogen 0.2 E.U/dL Urine Leukocyte Esterase Negative Urine Culture Indicated Not ind Volume Urine Centrifuged 10 ml Urine Comment White Blood Count 13.8 X10'3 Red Blood Count 5.62 X10'6 Hemoglobin 15.2 g/dl Hematocrit 45.8 % Mean Corpuscular Volume 81.4 FL Mean Corpuscular Hemoglobin 27.0 PG Mean Corpuscular Hemoglobin Concent 33.1 g/dL Red Cell Distribution Width 15.2 % Platelet Count 228 X10'3 Mean Platelet Volume 9.1 FL Neutrophils (%) (Auto) 82.4 % Lymphocytes (%) (Auto) 8.7 % Monocytes (%) (Auto) 4.6 % Eosinophils (%) (Auto) 3.7 % Basophils (%) (Auto) 0.6 % Neutrophils # (Auto) 11.3 X10'3 Lymphocytes # (Auto) 1.2 X10'3 Monocytes # (Auto) 0.6 X10'3 Eosinophils # (Auto) 0.5 X10'3 Basophils # (Auto) 0.1 X10'3 CBC Comment Sodium Level 139 MMOL/L Potassium Level 4.0 MMOL/L 3.6 MMOL/L Chloride Level 104 MMOL/L Carbon Dioxide Level 25.3 MMOL/L Anion Gap 10 Blood Urea Nitrogen 12 MG/DL Creatinine 1.04 MG/DL Estimated GFR/1.73 m2 74 ML/MIN BUN/Creatinine Ratio 11.5 Glucose Level 154 MG/DL Hemoglobin A1c 8.8 % Calcium Level 9.2 MG/DL Total Bilirubin 0.9 MG/DL Aspartate Amino Transf (AST/SGOT) 26 U/L Alanine Aminotransferase (ALT/SGPT) 25 U/L Alkaline Phosphatase 98 IU/L Total Protein 7.6 G/DL Albumin 4.0 G/DL Globulin 3.6 G/DL Albumin/Globulin Ratio 1.1 Lipase 18 U/L Chemistry Comments Lactic Acid Level 0.7 MMOL/L Magnesium Level 1.8 MG/DL Glucometer 119 mg/dl Test 06/24/25 09:22 06/24/25 10:45 06/25/25 04:29 06/25/25 06:59 Activated Partial Thromboplast Time 32 SECONDS Glucometer 106 mg/dl 155 mg/dl White Blood Count 7.9 X10'3 Red Blood Count 5.14 X10'6 Hemoglobin 14.0 g/dl Hematocrit 42.5 % Mean Corpuscular Volume 82.7 FL Mean Corpuscular Hemoglobin 27.3 PG Mean Corpuscular Hemoglobin Concent 33.0 g/dL Red Cell Distribution Width 15.2 % Platelet Count 198 X10'3 Mean Platelet Volume 9.4 FL Neutrophils (%) (Auto) 91.5 % Lymphocytes (%) (Auto) 7.2 % Monocytes (%) (Auto) 1.1 % Eosinophils (%) (Auto) 0 % Basophils (%) (Auto) 0.2 % Neutrophils # (Auto) 7.3 X10'3 Lymphocytes # (Auto) 0.6 X10'3 Monocytes # (Auto) 0.1 X10'3 Eosinophils # (Auto) 0.0 X10'3 Basophils # (Auto) 0.0 X10'3 CBC Comment Sodium Level 141 MMOL/L Potassium Level 4.6 MMOL/L Chloride Level 106 MMOL/L Carbon Dioxide Level 22.3 MMOL/L Anion Gap 13 Blood Urea Nitrogen 14 MG/DL Creatinine 1.03 MG/DL Estimated GFR/1.73 m2 75 ML/MIN BUN/Creatinine Ratio 13.6 Glucose Level 163 MG/DL Calcium Level 8.0 MG/DL Magnesium Level 1.8 MG/DL Albumin 2.8 G/DL Triglycerides Level 15 MG/DL Cholesterol Level 134 MG/DL LDL Cholesterol 76 MG/DL HDL Cholesterol 48 MG/DL Cholesterol/HDL Ratio 2.8 Chemistry Comments Test 06/25/25 12:34 Glucometer 131 mg/dl Imaging: Abdominal and pelvis CT: IMPRESSION: 1. Acute appendicitis. No free air or abscess. 2. Nodular contour of the liver should be fibrosis or cirrhosis. Correlate with liver function test. 3. Small portosystemic collateral vessels and splenomegaly which may be stigmata of portal hypertension . 4. Prior [place] fundoplication and small hiatal hernia. Echocardiogram: Normal LV size and wall thickness. Overall systolic function is normal. LVEF is 60-65%. RV is moderately dilated with normal systolic function. LA size is normal. Mobile interatrial septum - no flow detected. Trileaflet AV appears mildly sclerotic without stenosis or insufficiency. Mild MV annular calcification without stenosis. Trace regurgitation. TV appears structurally normal with trace regurgitation. Ascending aorta is dilated. Normal pericardium. No effusion. Chest x-ray: No acute cardiopulmonary disease. Physical examination on discharge: General: Moderately built middle-aged man, Alert, awake, oriented, in acute distress HEENT: PERRLA, no icterus, pallor, lymphadenopathy, carotid bruit Respiratory system: Bilateral vesicular breath sounds heard, no adventitious breath sounds CVS: S1-S2 heard, no murmurs/rubs/gallop GI: Hypoactive bowel sounds, Incision sites covered with bandage, clean. Abdomen tender in all quadrants. No bloating/rigidity. Neuro: No focal neurological deficits present Extremities: No edema cyanosis clubbing/deformities Skin: Warm and dry, multiple excoriation [place] with scabs and papules present on the lower extremity. Discharge instructions: Take [place] 5 1 tablet p.o. q.6h p.r.n. for pain -Continue your home medications -Follow-up with your primary care provider and Dr. Alcantar in 1 week . -Maintain a soft diet for the next couple of days until full bowel function returns. -You may shower but avoid scrubbing incision sites. -Avoid lifting greater than 10 pounds. -Visit ER immediately in case of any acute symptoms including intractable abdominal pain, distention, bloating, discharge from the -suture sites, fever with chills, nausea/vomiting. *Problems/Diagnosis: (1) Acute appendicitis Status: Acute (2) Type 2 diabetes mellitus (3) History of repair of hiatal hernia (4) S/P appendectomy Total Time Spent on D/C: > 30 Minutes Counseling Services Smoking & Tobacco Cessation: N/A Date of Service: Jun 25, 2025 Billing Provider: ANITA LI MD Common Visit Codes: 67334-QTA/OBS DISCH DAY >30min MAGDIEL LIZAMA, RES Jun 25, 2025 15:27 ANITA LI MD Jun 26, 2025 06:41
[2025-06-25] MEDS ORDERED: insulin glargine (Lantus) pen - multi-dose SQ SCH (20:00)
== END 2025-06-25 14:22 | disposition home or self-care (01) | DRG 399 ==
LOC: ER 19:31 → ED HOLD 06-24 00:46 → SUR 3N 06-24 06:17
PROVIDERS: ADMIT Internal Medicine Critical Care Medicine; ATTEND Internal Medicine
PROC: BW211ZZ Computerized Tomography (CT Scan) of Abdomen and Pelvis using Low Osmolar Contrast (ICD-10-PCS; 2025-06-23)
PROC: 8E0W4CZ Robotic Assisted Procedure of Trunk Region, Percutaneous Endoscopic Approach (ICD-10-PCS; 2025-06-24)
PROC: 0DTJ4ZZ Resection of Appendix, Percutaneous Endoscopic Approach (ICD-10-PCS; principal; 2025-06-24 15:12)
DX: K35.80 Unspecified acute appendicitis (principal); E11.9 Type 2 diabetes mellitus without complications; I10 Essential (primary) hypertension; G47.30 Sleep apnea, unspecified; K21.9 Gastro-esophageal reflux disease without esophagitis; Z88.1 Allergy status to other antibiotic agents
CPT/HCPCS: 36415; 71045; 74177; 80048; 80053; 80061; 81003; 82948; 83036; 83605; 83690; 83735; 84132; 85025; 85730; 87040; 87081; 88304; 93005; 93306; 94660; 94760; 96365; 99285; A4215; A4615; A4618; A6222; G0378; J0131; J0744; J1100; J1171; J1815; J2003; J2250; J2405; J2704; J2710; J3010; J3373; J3490; J7030; Q9967

== ENCOUNTER 2025-06-28 21:23 | Emergency (ER) | payer MEDICARE, MEDICAID ==
[~2025-06-28] VITALS: Ht 175.3 cm; Wt 105.0 kg
[~2025-06-28 21:23] MED LIST changes: +BD; -BENZ-16 PO; -DIAZ5TAB PO; -HCTZ25T PO; +HYDR-3965 PO; -HYDR-4383 PO; -IBUP600T52 PO; +LANTUS SQ; -NO HOME MEDS; +PIOG45TA65 PO
[2025-06-28 21:28] VITALS: BP 148/93; PULSE 85; RESP 18; TEMP 98.2; O2SAT 98
[2025-06-28 21:55] LABS: MEAN PLATELET VOLUME 8.4 FL (7.4-10.4); RED CELL DISTRIBUTION WIDTH 15.3 % (11.5-14.5)
[2025-06-28 22:11] LABS: CREATININE 0.95 MG/DL (0.60-1.10); TOTAL CARBON DIOXIDE 23.7 MMOL/L (24-32); eCRCL 88 ML/MIN; eGFR 82 ML/MIN
== END 2025-06-29 00:02 | disposition left against medical advice (07) ==
LOC: ER 21:23
DX: R11.10 Vomiting, unspecified (principal); Z88.1 Allergy status to other antibiotic agents; Z53.21 Procedure and treatment not carried out due to patient leaving prior to being seen by health care provider
CPT/HCPCS: 36415; 80053; 83690; 85025; 99281